=== PATIENT | male | born 1985 | race African-American/Black ===

== ENCOUNTER 2017-11-08 08:22 | Emergency (ER) | payer OTHER ==
[2017-11-08 08:30] VITALS: BP 140/70; PULSE 58; TEMP 97.3; BMI 19.5
--- NOTE | 2017-11-08 09:01 | PDOC ---
History of Present Illness - General Chief Complaint: Penile Drainage Stated Complaint: PENILE PROBLEM Time Seen by Provider: 11/08/17 08:54 History Source: Patient Exam Limitations: No Limitations - History of Present Illness Initial Comments: 11/08/17 09:01 Patient is a [31-year-old male, denies any significant medical history, currently on no medications presents for evaluation of feeling of irritation to tip of penis. Patient had sex 2 days ago using a condom also had oral sex and since complaining of sensitivity to tip of penis. Denies any penile discharge, no pain, no urinary pain, no hematuria, no penile lesions.] Past Medical History: [Denies]. Allergies: No known allergies Medications: [None] Family History: Non-contributory Social History: Denies smoking, alcohol use, or IVDU Review of Systems GENERAL/CONSTITUTIONAL: [No fever or chills. No weakness. No weight change.] HEAD, EYES, EARS, NOSE AND THROAT: [No change in vision. No ear pain or discharge. No sore throat. ] CARDIOVASCULAR: [No chest pain or shortness of breath.] RESPIRATORY: [No cough, wheezing, or hemoptysis.] GASTROINTESTINAL: [No nausea, vomiting, diarrhea or constipation. No rectal bleeding.] GENITOURINARY: [No dysuria, frequency, or change in urination. Feeling of sensitivity to tip of penis] MUSCULOSKELETAL: [No joint or muscle swelling or pain. No neck or back pain.] SKIN AND BREASTS: [No rash or easy bruising.] NEUROLOGIC: [No headache, vertigo, loss of consciousness, or loss of sensation.] PSYCHIATRIC: Anxious ENDOCRINE: [No increased thirst. No abnormal weight change.] HEMATOLOGIC/LYMPHATIC: [No anemia, easy bleeding, or history of blood clots.] ALLERGIC/IMMUNOLOGIC: [No hives or skin allergy. No latex allergy.] Physical Exam: GENERAL: [The patient is awake, alert, and fully oriented, in no acute distress. ] HEAD: [Normal with no signs of trauma.] EYES: [Pupils equal, round and reactive to light, extraocular movements intact, sclera anicteric, conjunctiva clear.] ENT: [Ears normal, nares patent, oropharynx clear without exudates. Moist mucous membranes. No uvula deviation] NECK: [Normal range of motion, supple without lymphadenopathy, JVD, or masses.] LUNGS: [Breath sounds equal, clear to auscultation bilaterally. No wheezes, and no crackles.] HEART: [Regular rate and rhythm, normal S1 and S2 without murmur, rub or gallop. ] ABDOMEN: [Soft, nontender, normoactive bowel sounds. No guarding, no rebound. No masses. No bruising or abrasions] GENITALIA: Scrotum with good cremasteric reflex penis with no erythema edema, no rash, no lesions, no penile discharge. MUSCULOSKELETAL: [Normal range of motion, no edema. No clubbing or cyanosis. No cords, erythema, or tenderness. No CVA Tenderness with fist.] NEUROLOGICAL: [Cranial nerves II through XII grossly intact. Normal speech, normal gait.] PSYCH: [Normal mood, normal affect.] SKIN: [Warm, Dry, normal turgor, no rashes or lesions noted.] 11/08/17 09:46 Past History - Past Medical History Allergies/Adverse Reactions: Allergies Allergy/AdvReac Type Severity Reaction Status Date / Time No Known Allergies Allergy Verified 11/08/17 08:27 Home Medications: Ambulatory Orders NK [No Known Home Medication] 11/08/17 COPD: No - Suicide/Smoking/Psychosocial Hx Smoking History: Never smoked Have you smoked in the past 12 months: No Information on smoking cessation initiated: No Hx Alcohol Use: No Drug/Substance Use Hx: No Substance Use Type: None *Physical Exam - Vital Signs Last Vital Signs Temp Pulse Resp BP Pulse Ox 97.3 F L 58 L 18 140/70 100 11/08/17 08:27 11/08/17 08:27 11/08/17 08:27 11/08/17 08:27 11/08/17 08:27 Medical Decision Making - Medical Decision Making 11/08/17 09:47 A/P: Patient here for evaluation of sensitivity to tip of penis there is no erythema, no edema, no lesions, no discharge, scrotum is intact. Patient is requesting STD testing. Gonorrhea Chlamydia, RPR and HIV sent low suspicion for STD based upon clinical presentation. 11/08/17 12:09 HIV is negative, although low suspicion for STD patient is requesting treatment for STD based upon risky behavior. I will give azithromycin 1 g by mouth and Rocephin 250 mg IM 1, call to follow- up in one week for results of gonorrhea chlamydia testing. Follow-up with PMD if symptoms persist *DC/Admit/Observation/Transfer Diagnosis at time of Disposition: Irritation of penis - Discharge Dispostion Disposition: HOME Condition at time of disposition: Good Admit: No - Referrals Referrals: Miguelito Cortez MD [Primary Care Provider] - - Patient Instructions Additional Instructions: PLease call: [phone] in one week for results of STD testing. - Post Discharge Activity Forms/Work/School Notes: Back to Work
[2017-11-08 11:44] LABS: HIV 1 & 2 AB NEGATIVE; HIV 1 AGp24 NEGATIVE
[2017-11-08] MEDS ORDERED: AZITHROMYCIN 500 MG TABLET PO ONE (12:04)
[2017-11-08] MEDS ORDERED: AZITHROMYCIN 500 MG TABLET ONE (12:18)
== END 2017-11-08 12:25 | disposition home or self-care (01) ==
LOC: JERFT 08:22
DX: N48.89 Other specified disorders of penis (principal); Z11.3 Encounter for screening for infections with a predominantly sexual mode of transmission
CPT/HCPCS: 36415; 86593; 87389; 87491; 87591; 99281-25

== ENCOUNTER 2019-10-15 04:56 | Day surgery (SDC) | payer OTHER ==
[2019-10-06 11:00] VITALS: BMI 18.8
[2019-10-15] MEDS ORDERED: PROPOFOL 20 ML ONE (09:08)
[2019-10-15] MEDS ORDERED: ceFAZolin SODIUM 1 GM VIAL ONE (09:10)
[2019-10-15] MEDS ORDERED: DEXAMETHASONE SOD PHOSPHATE 4 MG/1 ML VIAL ONE (09:10)
[2019-10-15] MEDS ORDERED: KETOROLAC TROMETHAMINE 30 MG/1 ML VIAL ONE (09:10)
[2019-10-15] MEDS ORDERED: DESFLURANE GAS 240 ML BOTTLE IH ONE (09:13)
[2019-10-15] MEDS ORDERED: ROPIVACAINE HCL 0.5% 30ML VIAL ONE (09:19)
[2019-10-15] MEDS ORDERED: MIDAZOLAM HCL 2 MG/2 ML SINGLE DOSE VIAL ONE ×2 (09:19)
--- NOTE | 2019-10-15 09:19 | HP ---
[facility] - Chief Complaint Chief Complaint: left shoulder pain - Past Medical History Allergies/Adverse Reactions: Allergies Allergy/AdvReac Type Severity Reaction Status Date / Time No Known Allergies Allergy Verified 10/15/19 07:39 - Current Medications Current Medications: Home Medications Medication Instructions Recorded Hydrocodone/Acetaminophen 1 each PO Q6H #30 tablet MDD 4 10/15/19 [Hydrocodone-Acetamin 5-325 mg] [facility] Physical Exam - Physical Examination Vital Signs: Vital Signs Period Temp Pulse Resp BP Sys/Mejia Pulse Ox Last 24 Hr 98.1 F 55 16 125/83 96 General Appearance: Well Nourished, Well Developed, Alert & Oriented x3 ENT: Clear Lung: Normal air movement Extremities: Other (left shoulder- + ttp, dec rom, + neer, + hunter, nvi) Neurological: Intact, Alert, Oriented [facility] Impression/Plan - Impression/Plan Impression: left shoulder impingement Operative Procedure: left shoulder arthroscopy with SAD Date to be Performed: 10/15/19
[2019-10-15] MEDS ORDERED: ceFAZolin SODIUM 1 GM VIAL IVPB ONE (10:55)
--- NOTE | 2019-10-15 11:46 | OP ---
Operative Note - Note: Operative Date: 10/15/19 Pre-Operative Diagnosis: left shoulder impingement syndrome, adhesive capsulitis Operation: left shoulder arthroscopy, subacromial decompression, manipulation under anesthesia Post-Operative Diagnosis: Same as Pre-op Surgeon: Domenico Miller Service Provider: Bj Jackson Anesthesiologist/SUPERVISOR [employer]: Derrell Srinivasan Anesthesia: General, Local Specimens Removed: shavings Estimated Blood Loss (mls): 20 Drains, Volume Out (mls): 0 Blood Volume Replaced (mls): 0 Fluid Volume Replaced (mls): 700 Operative Report Dictated: Yes
[2019-10-15] MEDS ORDERED: oxyCODONE HCL 5 MG TABLET PO PRN (12:31)
[2019-10-15] MEDS ORDERED: ONDANSETRON 4 MG/2 ML VIAL IVPUSH PRN (12:31)
[2019-10-15 16:00] VITALS: TEMP 97.8
[2019-10-15 16:14] VITALS: BP 134/76; PULSE 46
--- NOTE | 2019-10-15 20:12 | OP ---
DATE OF OPERATION: 10/15/2019 PREOPERATIVE DIAGNOSIS: Left shoulder subacromial impingement. Adhesive capsulitis. POSTOPERATIVE DIAGNOSIS: Left shoulder subacromial impingement. PROCEDURE: Left shoulder arthroscopy subacromial decompression and manipulation under anesthesia. ANESTHESIOLOGIST: Benjy Stevens M.D. ANESTHESIA: Left interscalene block. LMA anesthesia. DRAINS: None. COMPLICATIONS: None. BLOOD LOSS: Minimal. BLOOD GIVEN: None. FLUID REPLACEMENT: 700 mL Plasmalyte. INDICATION: This patient is a 33-year-old male with the preoperative diagnosis of left shoulder mild adhesive capsulitis and impingement syndrome. After understanding the potential risks, complications, alternatives, benefits to surgery versus nonsurgical treatment, the patient elected to undergo this procedure. DESCRIPTION OF PROCEDURE; The patient was brought to the operating room, peripheral IV placed, IV sedation given, 2 g of IV Ancef was given. A left interscalene block was performed. He was placed in the beach chair position. After LMA anesthesia was induced, the left upper extremity was prepped and draped in sterile fashion. The bony landmarks are marked out with a marking pen. The posterior portal was established. The left upper extremity was then manipulated under anesthesia. I was able to get forward flexion, abduction, internal-external rotation. It was not that stiff. It was not that difficult to push it, but there were 2 points at which I did feel some stretching in both the forward flexion and abduction plane. Next, the left upper extremity was prepped and draped in the sterile fashion. The bony landmarks are marked out with a marking pen. The posterior portal was established. A diagnostic arthroscopy was performed inside the joint. Everything looked good. The patient had no glenohumeral osteoarthritis. The labrum, biceps tendon, the undersurface of the rotator cuff all looked pristine. There was no synovitis. It looked completely normal. Next, our attention turned to the subacromial space. There was a tremendous about of inflammatory bursitis. A lateral portal was established under direct visualization using a spinal needle. Then a number 15 scalpel blade and introduced in the subacromial space. We did soft tissue bursectomy/subacromial soft tissue decompression with the ArthroCare wand. This revealed a moderate sized type 2 subacromial spur. The distal clavicle looked fine. The AC joint looked fine. I took down the bony spur with a 5.5-mm oval bur, fine-tuned it in reverse and then with the straight shaver. I put the arm through a full range of motion in all planes. There was no point of even close contact with the rotator cuff on the undersurface of the acromion at this point. The rotator cuff also looked great. There were no signs of a rotator cuff tear. The area was copiously irrigated and washed out. All instrumentation, excess saline removed. Arthroscopy portal was closed with 3-0 nylon sutures and covered with Aquacel, was placed into a sling, extubated. Total operative time was about 40 minutes. There were no complications during the case. The patient tolerated the procedure quite well and was brought to the ambulatory recovery room in stable condition. Assisted by GABRIELLE Parks, October 15, 2019. Left shoulder arthroscopy, subacromial decompression, manipulation under anesthesia. ARACELIS ARREOLA M.D. [id number]
--- NOTE | 2019-10-17 16:21 | PATH ---
Surgical Pathology Report Patient Name: KARSON BETH Med. Rec. #: [id number] /Age/Gender: 1985 (Age: 33) / M Account: [id number] Location: [facility] [place] [facility] Taken: 10/15/2019 Received: 10/15/2019 Reported: 10/17/2019 Physicians: Domenico Miller M.D. Specimen(s) Received LEFT SHOULDER SHAVINGS Clinical History Left shoulder impingement Final Diagnosis SHOULDER SHAVINGS, LEFT, ARTHROSCOPY WITH DECOMPRESSION: FRAGMENTS OF BENIGN CARTILAGE, DENSE FIBROCONNECTIVE TISSUE, ADIPOSE TISSUE, SYNOVIUM, AND SKELETAL MUSCLE. Electronically Signed Yolanda James M.D. Gross Description Received in formalin, labeled "left shoulder shaving," is a 3.5 x 3.2 x 0.3 cm. aggregate of poole-yellow soft tissue fragments. A fulfillment representative portion is submitted in one cassette. 10/16/201910/16/2019
== END 2019-10-15 14:50 | disposition home or self-care (01) ==
LOC: JASU-SURG 04:56
PROVIDERS: ATTEND Orthopaedic Surgery
PROC: 0RNK4ZZ Release Left Shoulder Joint, Percutaneous Endoscopic Approach (ICD-10-PCS; principal; 2019-10-15 09:30)
DX: M75.42 Impingement syndrome of left shoulder (principal); M75.02 Adhesive capsulitis of left shoulder
CPT/HCPCS: 88304-TC; 94760

== ENCOUNTER 2023-02-10 18:19 | Emergency (ER) | payer OTHER ==
[2023-02-10 18:34] VITALS: BP 121/68; PULSE 82; RESP 16; TEMP 98.3; BMI 18.2
[2023-02-10] MEDS ORDERED: DOXYCYCLINE HYCLATE 100 MG CAPSULE PO ONE ×2 (19:26→19:46)
[2023-02-10 19:30] LABS: URINE APPEARANCE CLEAR; URINE BILIRUBIN NEGATIVE (NEGATIVE); URINE COLOR YELLOW; URINE GLUCOSE (UA) NEGATIVE (NEGATIVE); URINE KETONE NEGATIVE (NEGATIVE); URINE LEUK ESTERASE NEGATIVE (NEGATIVE); URINE NITRITE NEGATIVE (NEGATIVE); URINE PROTEIN NEGATIVE (NEGATIVE); URINE UROBILINOGEN 0.2 mg/dL (0.2-1.0)
[2023-02-10] MEDS ORDERED: LIDOCAINE HCL/PF 1% SDV 5ML VIAL ONE (19:48)
[2023-02-10 20:44] LABS: HIV INTERPRETATION NEGATIVE (NEGATIVE)
== END 2023-02-10 21:03 | disposition home or self-care (01) ==
LOC: JERFT 18:19
DX: Z20.2 Contact with and (suspected) exposure to infections with a predominantly sexual mode of transmission (principal)
CPT/HCPCS: 36415; 81003; 87086; 87389; 87491; 87591; 99284-25